=== PATIENT | male | born 1960 | race Caucasian/White ===

== ENCOUNTER 2018-07-02 06:55 | Emergency (ER) | payer OTHER | END 2018-07-02 10:32 | disposition home or self-care (01) | LOC: FTE 06:55 | DX: R20.2 Paresthesia of skin (principal); R20.0 Anesthesia of skin; M79.672 Pain in left foot; M25.521 Pain in right elbow; M25.522 Pain in left elbow | CPT/HCPCS: 29515; 99282-25 ==